=== PATIENT | female | born 2000 | race Caucasian/White ===

== ENCOUNTER 2020-12-18 10:42 | Emergency (ER) | payer BC ==
[~2020-12-18] VITALS: Ht 165.1 cm; Wt 140.0 kg
[2020-12-18 10:58] VITALS: BP 129/51
[2020-12-18] MEDS ORDERED: ALBU8.5H17 INH (11:35)
== END 2020-12-18 11:42 | disposition home or self-care (01) ==
LOC: ER 10:43
DX: R06.2 Wheezing (principal); R06.02 Shortness of breath; Z79.899 Other long term (current) drug therapy
CPT/HCPCS: 71045; 99283